=== PATIENT | female | born 1945 | race Caucasian/White ===

== ENCOUNTER 2018-08-22 12:30 | Inpatient (IN) | payer MEDICARE ==
[2018-08-22 12:52] VITALS: BMI 27.4
[2018-09-03] MEDS ORDERED: Lidocaine 1% (PF) 30 ML VIAL ONE (06:30)
[2018-09-03] MEDS ORDERED: Midazolam HCl 2 mg/2 ml Vial ONE (06:30)
[2018-09-03] MEDS ORDERED: Fentanyl 100 MCG/2 ML VIAL ONE ×3 (06:30→09:14)
[2018-09-03] MEDS ORDERED: Sodium Chloride 0.9% 100 ML ONE (06:33)
[2018-09-03] MEDS ORDERED: Tranexamic Acid 1,000 MG/10 ML VIAL ONE (06:33)
[2018-09-03] MEDS ORDERED: CEFAZOLIN 2 GM/50 ML BAG ONE (06:33)
[2018-09-03] MEDS ORDERED: Benzonatate 100 MG CAP PO PRN (06:59)
[2018-09-03] MEDS ORDERED: Fentanyl 100 MCG/2 ML VIAL SLOW IVP PRN (07:00)
[2018-09-03] MEDS ORDERED: Acetaminophen 325 MG TAB PO PRN (07:00)
[2018-09-03] MEDS ORDERED: HYDROcodone/Acetaminophen 10/325 mg Tablet PO PRN ×4 (07:00→07:54)
[2018-09-03] MEDS ORDERED: diphenhydrAMINE 25 MG CAP PO PRN (07:00)
[2018-09-03] MEDS ORDERED: Ondansetron PF 4 MG/2 ML Vial IVP PRN ×2 (07:00→07:54)
[2018-09-03] MEDS ORDERED: Zolpidem Tartrate 5 MG TAB PO PRN ×2 (07:00→07:54)
[2018-09-03] MEDS ORDERED: traMADol HCl 50 MG TAB PO PRN ×2 (07:00→07:54)
[2018-09-03] MEDS ORDERED: CEFAZOLIN/Water 2 GM/20 ML SYRINGE SLOW IVP SCH (07:00)
[2018-09-03] MEDS ORDERED: Promethazine HCl 25 MG/ML VIAL IM PRN ×3 (07:00→08:09)
[2018-09-03] MEDS ORDERED: Ketorolac Tromethamine 30 MG/ML VIAL IVP PRN (07:54)
[2018-09-03] MEDS ORDERED: Ropivacaine 0.2% 550 ML 550 ML NERVE BLCK SCH (07:54)
[2018-09-03] MEDS ORDERED: Fentanyl 100 MCG/2 ML VIAL IV PRN (08:01)
[2018-09-03] MEDS ORDERED: Promethazine HCl 25 MG/ML VIAL SLOW IVP PRN (08:09)
[2018-09-03] MEDS ORDERED: Ondansetron HCl/PF 4 MG/2 ML Vial IVP PRN (08:09)
[2018-09-03] MEDS ORDERED: Ketorolac Tromethamine 30 MG/ML VIAL ONE (08:59)
[2018-09-03] MEDS ORDERED: Aspirin 81 mg Enteric Coated Tablet PO SCH (09:00)
--- NOTE | 2018-09-03 10:03 | OP ---
PREOPERATIVE DIAGNOSIS: Degenerative joint disease, right knee. POSTOPERATIVE DIAGNOSIS: Degenerative joint disease, right knee. PROCEDURE PERFORMED: Right total knee arthroplasty. SURGEON: Doe Saul M.D. PRODUCE INSPECTOR: Merritt Lares PA-C. BLOOD LOSS: Minimal. SPECIMEN: None. DRAINS: None. COMPLICATIONS: None. TOURNIQUET TIME: 46 minutes. IMPLANTS USED: Jud Triathlon 4 femur, 3 tibia, 9 mm CSX3 polyethylene, A29 patella. PROCEDURE IN DETAIL: After informed consent was obtained in the preoperative holding area. The emilee ent was taken to the operative suite where general anesthesia was induced. Once adequate level of ge neral anesthesia was obtained, the patient was positioned and a well-padded tourniquet was placed jeff und the right proximal thigh. The right lower extremity was then prepped and draped in the usual tianna rile fashion. Prior to exsanguination, a time out was called and all members of the surgical team ag tomeka upon site, surgeon, and patient. The extremity was then exsanguinated and the tourniquet was ra ised. A midline longitudinal incision was then made directly over the patella extending two fingerbr eadths above the superior pole of the patella and two fingerbreadths inferior to the inferior patella r pole of the patella. Deeper subcutaneous layers were dissected sharply and local bleeding was cont rolled with Bovie electrocautery. A quad tendon longitudinal split was then made sharply and a media n parapatellar arthrotomy was carried out both sharp and with Bovie electrocautery, carried down to o ne fingerbreadth medial to the tibial tubercle. The knee was then placed into flexion and the patell a was everted nicely, and a copious fat pad ectomy was performed allowing for greater exposure of the tibia. The computer-assisted distal femoral fiducial was then placed and pinned firmly, and the dis rachana femoral cutting guide was pinned firmly into place. The oscillating saw was then used to remove the appropriate amount of bone. The 4-in-1 cutting block was then placed on the distal femur and the oscillating saw was used to remove the appropriate amount of bone off of the anterior, posterior, an d chamfer cuts. After completion of bone cuts, the anterior cruciate ligament was resected sharply a nd the posterior cruciate ligament retractor was placed and the tibia was subluxed for better exposur e. Partial meniscectomies were carried out, and the tibial computer-assisted fiducial was pinned, an d the cutting guide was placed. Oscillating saw was then used to remove the bone with Hohmann retrac tors used to take care and protect the collateral ligaments. After the tibial resection was performe d, a laminar occupational therapy instructor was placed in between the freshened bone cuts. The knee placed at 90 degrees a nd further bilateral meniscectomies were carried out, and the curved osteotome and curettage was used to remove any excess bone spurs in the posterior compartment. The trial femoral component, tibial b aseplate were placed with the appropriate polyethylene trial insert with an appropriate polyethylene spacer and patellar button. The knee was taken through full range of motion with flexion and extensi on from 0-90 degrees and patellar broach squarely in the trochlea without any squinting or subluxatio n noted. The knee was also stable to varus and valgus stressing at 0, 15, 45, and 90 degrees of flex ion. The drawer was negative. All trial components were then removed and the keel punch was used to provide the appropriate defect in the tibia with a mallet. The freshened bone cuts were copiously i rrigated with pulsatile lavage of about 1-1/2 liters to remove all excess debris. The freshened bone cuts were then dried and with suction and lap sponge. The knee was placed in flexion and retractors were placed to provide access to all bone cuts. Tobramycin impregnated methyl methacrylate cement w as then placed on the freshened bone cuts and implants which were malleted firmly into place. Curett age and [place] elevators were used to remove any excess bone cement. The knee was placed into full ex tension and the patellar button was placed under compression, and the cement was allowed to cure. On ce completed, the components were again taken through full range of motion and copious irrigation of the knee was carried out with another liter of normal saline. All components were inspected fully wi th full range of motion and varus and valgus stressing. There was no laxity noted and full extension was observed clinically. Primary closure was accomplished with #2 interrupted Vicryl stitch of the arthrotomy defect. This was oversewn with a #2 running Quill barbed stitch. The gravitational plate let system was then injected into the arthrotomy prior to closure. The subcutaneous layer was then c losed with a running 0 barbed Monocryl stitch and skin closure accomplished with a running subcuticul ar 3-0 Monocryl barbed Quill stitch and augmented with cement on the skin. Tourniquet was lowered. Good spontaneous return of distal pulses was noted clinically and a sterile dressing was applied to t he incision. The procedure was terminated without any complications. The patient was awakened in th e operative suite and the tourniquet was removed, and the patient was taken to the recovery room in s table condition.
[2018-09-03] MEDS ORDERED: Cepastat Lozenges 1 LOZ PO PRN (10:24)
[2018-09-03] MEDS ORDERED: Diabetic Tussin 200 MG/10 ML UDCUP PO PRN (10:24)
[2018-09-03] MEDS ORDERED: Loperamide HCl 2 MG CAP PO PRN (10:24)
[2018-09-03] MEDS ORDERED: hydrALAZINE 20 MG/ML VIAL SLOW IVP PRN (10:24)
[2018-09-03] MEDS ORDERED: Artificial Tears 18 DROP/0.9 ML EA EYE PRN (10:24)
[2018-09-03] MEDS ORDERED: Eucerin (Mineral Oil/Petrolatum,White) 30 gm Jar TOP PRN (10:24)
[2018-09-03] MEDS ORDERED: Sodium Chloride 0.65% Nasal 44 ML BOT EA NARE PRN (10:24)
--- NOTE | 2018-09-03 10:27 | PDOC.PN ---
- Subjective Encounter Start Date: 09/03/18 Encounter Start Time: 10:26 -: old records requested/rev Patient seen and examined. No new complaints. No overnight events - Objective Resuscitation Status: Resuscitation Status FULL:Full Resuscitation MAR Reviewed: Yes Vital Signs & Weight: Weight Weight 165 lb Additional Labs: old labs and preoperative record reviewed Radiology Reviewed by me: Yes (knee xray) Phys Exam - Physical Examination Constitutional: NAD HEENT: PERRLA, moist MMs, sclera anicteric Neck: no JVD, supple Respiratory: no wheezing, no rales, no rhonchi Cardiovascular: RRR, no significant murmur, no rub Gastrointestinal: soft, non-tender, no distention, positive bowel sounds Musculoskeletal: no edema, pulses present Neurological: non-focal, normal sensation, moves all 4 limbs Lymphatic: no nodes Psychiatric: normal affect, A&O x 3 Skin: no rash, normal turgor Dx/Plan (1) Status post total right knee replacement Code(s): Z96.651 - PRESENCE OF RIGHT ARTIFICIAL KNEE JOINT Status: Acute (2) Dyslipidemia Code(s): E78.5 - HYPERLIPIDEMIA, UNSPECIFIED Status: Chronic (3) H/O: CVA (cerebrovascular accident) Code(s): Z86.73 - PRSNL HX OF TIA (TIA), AND CEREB INFRC W/O RESID DEFICITS Status: Chronic (4) H/O benign neoplasm of heart Code(s): Z86.79 - PERSONAL HISTORY OF OTHER DISEASES OF THE CIRCULATORY SYSTEM Status: Chronic (5) Rheumatoid arthritis Code(s): M06.9 - RHEUMATOID ARTHRITIS, UNSPECIFIED Status: Chronic - Plan cont current plan of care, plan discussed w/ family, PT/OT * continue aspirin for DVT prophylaxis * nerve block as per anesthesia * PT/OT as per [facility] protocol * medication reviewed as below * symptomatic treatment * home medication reconciled. * code status full code Review of Systems - Review of Systems Eyes: negative: Pain, Vision Change, Conjunctivae Inflammation, Eyelid Inflammation, Redness, Other ENT: negative: Ear Pain, Ear Discharge, Nose Pain, Nose Discharge, Nose Congestion, Mouth Pain, Mouth Swelling, Throat Pain, Throat Swelling, Other Respiratory: negative: Cough, Dry, Shortness of Breath, Hemoptysis, SOB with Excertion, Pleuritic Pain, Sputum, Wheezing Cardiovascular: negative: chest pain, palpitations, orthopnea, paroxysmal nocturnal dyspnea, edema, light headedness, other Gastrointestinal: negative: Nausea, Vomiting, Abdominal Pain, Diarrhea, Constipation, Melena, Hematochezia, Other Genitourinary: negative: Dysuria, Frequency, Incontinence, Hematuria, Retention , Other Musculoskeletal: negative: Neck Pain, Shoulder Pain, Arm Pain, Back Pain, Hand Pain, Leg Pain, Foot Pain, Other Skin: negative: Rash, Lesions, Chicho, Bruising, Other - Medications/Allergies Allergies/Adverse Reactions: Allergies Allergy/AdvReac Type Severity Reaction Status Date / Time No Known Allergies Allergy Verified 08/22/18 12:52 Medications: Current Medications Acetaminophen (Tylenol) 650 mg PO Q4H PRN PRN Reason: AMEZQUITA/ T > 101F; Mild Pain (1-3) Hydrocodone Bitart/Acetaminophen ([place] 10/325) 1 tab PO Q4H PRN PRN Reason: Pain (1-3) Hydrocodone Bitart/Acetaminophen ([place] 10/325) 2 tab PO Q4H PRN PRN Reason: PAIN (4-6) Artificial Tears (Tears Naturale) 2 drop EA EYE PRN PRN PRN Reason: Dry Eyes Aspirin (Ecotrin) 81 mg PO BID [facility] Benzonatate (Tessalon) 100 mg PO QIDPRN PRN PRN Reason: Cough Calcium Carbonate (Caltrate) 600 mg PO QAM [facility] Celecoxib (Celebrex) 200 mg PO QAM [facility] Cholecalciferol (Vitamin D3) 1,000 units PO SuTuThSa [facility] Diphenhydramine HCl (Benadryl) 25 mg PO Q6H PRN PRN Reason: Itching Fentanyl (Sublimaze) 50 mcg IV Q1H PRN PRN Reason: BT PAIN Fentanyl (Pacu-Sublimaze) 50 mcg SLOW IVP Q10MIN PRN PRN Reason: Moderate to Severe Pain (6-10) Stop: 09/03/18 11:09 Ferrous Gluconate (Fergon) 324 mg PO BID [facility] Folic Acid (Folvite) 1 mg PO DAILY [facility] Guaifenesin (Robitussin Sf) 200 mg PO Q4H PRN PRN Reason: Cough Hydralazine HCl (Apresoline) 10 mg SLOW IVP Q4H PRN PRN Reason: SBP Greater Than 170 Sodium Chloride (Normal Saline 0.9%) 1,000 mls @ 100 mls/hr IV .Q10H [facility] Cefazolin Sodium/Dextrose 2 gm (/ Device) 50 mls @ 100 mls/hr IVPB 1500,2300 ANUPAM Stop: 09/03/18 23:29 Ropivacaine (Ropivacaine 0.2% 550 Ml) 550 mls @ 0 mls/hr NERVE BLCK INF [facility] Iron/Minerals/Multivitamins (Theragran M) 1 tab PO DAILY [facility] Ketorolac Tromethamine (Toradol) 15 mg IVP Q6H PRN PRN Reason: Moderate Pain (4-6) Stop: 09/06/18 07:55 Loperamide HCl (Imodium) 2 mg PO PRN PRN PRN Reason: Diarrhea/Loose Stools Methotrexate Sodium (Methotrexate Sodium) 10 mg PO WeSa [facility] Mineral Oil/White Petrolatum (Eucerin Cream) 0 gm TOP BIDPRN PRN PRN Reason: Dry Skin Ondansetron HCl (Zofran) 4 mg IVP Q6H PRN PRN Reason: Nausea/Vomiting Ondansetron HCl (Pacu-Zofran) 4 mg IVP ONE PRN PRN Reason: Nausea/Vomiting Stop: 09/03/18 11:09 Promethazine HCl (Phenergan) 12.5 mg IM Q4H PRN PRN Reason: Nausea Promethazine HCl (Pacu-Phenergan) 6.25 mg SLOW IVP ONE PRN PRN Reason: Nausea/Vomiting Stop: 09/03/18 11:09 Promethazine HCl (Pacu-Phenergan) 6.25 mg IM ONE PRN PRN Reason: Nausea/Vomiting Stop: 09/03/18 11:09 Rosuvastatin Calcium (Crestor) 5 mg PO SuTuThSa [facility] Senna/Docusate Sodium (Senokot S) 2 tab PO BID [facility] Sodium Chloride (Flush - Normal Saline) 10 ml IVF PRN PRN PRN Reason: Saline Flush Sodium Chloride ([place] Nasal [place] 0.65%) 0 ml EA NARE QIDPRN PRN PRN Reason: Nasal Congestion Sotalol HCl (Betapace) 40 mg PO BID [facility] Throat Lozenges (Cepastat Lozenges) 1 tera PO Q2H PRN PRN Reason: Sore Throat Tramadol HCl (Ultram) 50 mg PO Q6H PRN PRN Reason: Mild Pain (1-3) Tramadol HCl (Ultram) 100 mg PO Q6H PRN PRN Reason: Moderate Pain 4-6 Zolpidem Tartrate (Ambien) 5 mg PO HSPRN PRN PRN Reason: Insomnia
--- NOTE | 2018-09-03 10:44 | RAD ---
PORTABLE RIGHT KNEE TWO VIEWS: History: Post op total knee replacement. FINDINGS/IMPRESSION: There are recent post op changes of total knee arthroplasty in good position and alignment. Soft tiss ue air is present. POS: [facility]
[2018-09-03] MEDS ORDERED: Ketorolac Tromethamine 30 MG/ML VIAL IM SCH (14:00)
[2018-09-03] MEDS ORDERED: Bupivacaine 0.25% HCL 30 ML VIAL ONE (14:12)
[2018-09-03] MEDS ORDERED: Ropivacaine 0.5% HCl/PF (150 MG/30 ML VIAL) ONE (14:12)
[2018-09-03] MEDS ORDERED: Lidocaine 1% PF 5 ML VIAL ONE (14:36)
[2018-09-03] MEDS ORDERED: PROPOFOL 200 MG/20 ML VIAL ONE (14:36)
[2018-09-03] MEDS ORDERED: Ondansetron PF 4 MG/2 ML Vial ONE (14:36)
[2018-09-03] MEDS: Sodium Chloride 0.9% 1,000 ML IV SCH ×2 (15:10→16:02)
[2018-09-03] MEDS: Sotalol HCl 80 MG TAB PO SCH ×2 (15:11→19:11)
[2018-09-03] MEDS: CeleCOXIB 100 MG CAP PO SCH (15:11)
[2018-09-03] MEDS: Calcium Carbonate 600 MG TAB PO SCH (15:11)
[2018-09-03] MEDS: Folic Acid 1 MG TAB PO SCH (15:11)
[2018-09-03] MEDS: Aspirin 81 mg Enteric Coated Tablet PO SCH ×2 (15:11→19:12)
[2018-09-03] MEDS: CEFAZOLIN 2 GM/50 ML-DEXTROSE 2 GM in Premix Bag 1 BAG IVPB SCH ×2 (15:16→22:21)
[2018-09-04] MEDS: Sodium Chloride 0.9% 1,000 ML IV SCH ×3 (02:28→22:48)
[2018-09-04 05:49] LABS: Hemoglobin 10.6 g/dL (12.0-16.0); Mean Corpuscular HGB CONC 32.9 g/dL (32.0-36.0); Mean Corpuscular Hemoglobin 33.6 pg (27.0-31.0); Mean Platelet Volume 7.6 fL (7.4-10.4); Platelet Count 201 thou/uL (130-400); RBC Distribution Width 13.3 % (11.5-14.5); Red Blood Cell (RBC) Count 3.16 mill/uL (4.20-5.40); White Blood Cell (WBC) Count 7.5 thou/uL (4.8-10.8)
[2018-09-04] MEDS: Multivitamin W/ Minerals 1 TAB PO SCH (07:54)
[2018-09-04] MEDS: CeleCOXIB 100 MG CAP PO SCH (07:55)
[2018-09-04] MEDS: Folic Acid 1 MG TAB PO SCH (07:55)
[2018-09-04] MEDS: Ferrous Gluconate 324 MG TAB PO SCH ×2 (07:55→19:41)
[2018-09-04] MEDS: Aspirin 81 mg Enteric Coated Tablet PO SCH ×2 (07:55→19:41)
[2018-09-04] MEDS: Senokot S 8.6-50 MG TAB PO SCH ×2 (07:56→19:41)
[2018-09-04] MEDS: Sotalol HCl 80 MG TAB PO SCH ×2 (07:56→19:37)
[2018-09-04] MEDS: Calcium Carbonate 600 MG TAB PO SCH (07:56)
[2018-09-04] MEDS: traMADol HCl 50 MG TAB PO PRN (07:57)
--- NOTE | 2018-09-04 10:49 | PDOC.PN ---
- Subjective Encounter Start Date: 09/04/18 Encounter Start Time: 08:00 Patient seen and examined. No new complaints. No overnight events - Objective Resuscitation Status: Resuscitation Status FULL:Full Resuscitation MAR Reviewed: Yes Vital Signs & Weight: Vital Signs (12 hours) Temp Pulse Resp BP BP BP BP 09/04/18 09:10 89/60 L 86/49 L 09/04/18 07:56 81 102/66 09/04/18 07:30 98.5 F 81 18 102/66 09/04/18 03:49 99.4 F 89 18 09/03/18 23:46 101.0 F H 94 18 BP Pulse Ox Pulse Ox Pulse Ox 09/04/18 09:10 89 L 90 L 09/04/18 07:56 09/04/18 07:30 94 L 09/04/18 03:49 90/55 L 94 L 09/03/18 23:46 94/60 95 Weight Weight 165 lb I&O: 09/03/18 09/04/18 09/05/18 06:59 06:59 06:59 Intake Total 1100 Output Total 1300 600 Balance -200 -600 Result Diagrams: 09/04/18 04:50 Phys Exam - Physical Examination Constitutional: NAD HEENT: PERRLA, moist MMs, sclera anicteric Neck: no JVD, supple Respiratory: no wheezing, no rales, no rhonchi Cardiovascular: RRR, no significant murmur, no rub Gastrointestinal: soft, non-tender, no distention, positive bowel sounds Musculoskeletal: no edema, pulses present left knee with dressing, nerve block in place Neurological: non-focal, normal sensation Lymphatic: no nodes Psychiatric: normal affect, A&O x 3 Skin: no rash, normal turgor Dx/Plan (1) Status post total right knee replacement Code(s): Z96.651 - PRESENCE OF RIGHT ARTIFICIAL KNEE JOINT Status: Acute (2) Dyslipidemia Code(s): E78.5 - HYPERLIPIDEMIA, UNSPECIFIED Status: Chronic (3) H/O: CVA (cerebrovascular accident) Code(s): Z86.73 - PRSNL HX OF TIA (TIA), AND CEREB INFRC W/O RESID DEFICITS Status: Chronic (4) H/O benign neoplasm of heart Code(s): Z86.79 - PERSONAL HISTORY OF OTHER DISEASES OF THE CIRCULATORY SYSTEM Status: Chronic (5) Rheumatoid arthritis Code(s): M06.9 - RHEUMATOID ARTHRITIS, UNSPECIFIED Status: Chronic (6) Macrocytic anemia Code(s): D53.9 - NUTRITIONAL ANEMIA, UNSPECIFIED Status: Chronic - Plan cont current plan of care, plan discussed w/ family, PT/OT * continue aspirin for DVT prophylaxis * nerve block as per anesthesia * PT/OT as per [facility] protocol * medication reviewed as below * symptomatic treatment. * she will need rehab/ snu placement on discharge Review of Systems - Review of Systems ENT: negative: Ear Pain, Ear Discharge, Nose Pain, Nose Discharge, Nose Congestion, Mouth Pain, Mouth Swelling, Throat Pain, Throat Swelling, Other Respiratory: negative: Cough, Dry, Shortness of Breath, Hemoptysis, SOB with Excertion, Pleuritic Pain, Sputum, Wheezing Cardiovascular: negative: chest pain, palpitations, orthopnea, paroxysmal nocturnal dyspnea, edema, light headedness, other Gastrointestinal: negative: Nausea, Vomiting, Abdominal Pain, Diarrhea, Constipation, Melena, Hematochezia, Other Genitourinary: negative: Dysuria, Frequency, Incontinence, Hematuria, Retention , Other Musculoskeletal: negative: Neck Pain, Shoulder Pain, Arm Pain, Back Pain, Hand Pain, Leg Pain, Foot Pain, Other Skin: negative: Rash, Lesions, Chicho, Bruising, Other - Medications/Allergies Allergies/Adverse Reactions: Allergies Allergy/AdvReac Type Severity Reaction Status Date / Time No Known Allergies Allergy Verified 08/22/18 12:52 Medications: Current Medications Acetaminophen (Tylenol) 650 mg PO Q4H PRN PRN Reason: AMEZQUITA/ T > 101F; Mild Pain (1-3) Last Admin: 09/04/18 05:50 Dose: 650 mg Hydrocodone Bitart/Acetaminophen ([place] 10/325) 1 tab PO Q4H PRN PRN Reason: Pain (1-3) Hydrocodone Bitart/Acetaminophen ([place] 10/325) 2 tab PO Q4H PRN PRN Reason: PAIN (4-6) Last Admin: 09/03/18 19:12 Dose: 2 tab Artificial Tears (Tears Naturale) 2 drop EA EYE PRN PRN PRN Reason: Dry Eyes Aspirin (Ecotrin) 81 mg PO BID ANUPAM Last Admin: 09/04/18 07:55 Dose: 81 mg Benzonatate (Tessalon) 100 mg PO QIDPRN PRN PRN Reason: Cough Calcium Carbonate (Caltrate) 600 mg PO QAM [facility] Last Admin: 09/04/18 07:56 Dose: 600 mg Celecoxib (Celebrex) 200 mg PO QAM [facility] Last Admin: 09/04/18 07:55 Dose: 200 mg Cholecalciferol (Vitamin D3) 1,000 units PO [facility] Diphenhydramine HCl (Benadryl) 25 mg PO Q6H PRN PRN Reason: Itching Fentanyl (Sublimaze) 50 mcg IV Q1H PRN PRN Reason: BT PAIN Last Admin: 09/03/18 10:35 Dose: 50 mcg Ferrous Gluconate (Fergon) 324 mg PO BID [facility] Last Admin: 09/04/18 07:55 Dose: 324 mg Folic Acid (Folvite) 1 mg PO DAILY [facility] Last Admin: 09/04/18 07:55 Dose: 1 mg Guaifenesin (Robitussin Sf) 200 mg PO Q4H PRN PRN Reason: Cough Hydralazine HCl (Apresoline) 10 mg SLOW IVP Q4H PRN PRN Reason: SBP Greater Than 170 Sodium Chloride (Normal Saline 0.9%) 1,000 mls @ 100 mls/hr IV .Q10H [facility] Last Admin: 09/04/18 02:28 Dose: Not Given Ropivacaine (Ropivacaine 0.2% 550 Ml) 550 mls @ 0 mls/hr NERVE BLCK INF [facility] Iron/Minerals/Multivitamins (Theragran M) 1 tab PO DAILY [facility] Last Admin: 09/04/18 07:54 Dose: 1 tab Ketorolac Tromethamine (Toradol) 15 mg IVP Q6H PRN PRN Reason: Moderate Pain (4-6) Stop: 09/06/18 07:55 Loperamide HCl (Imodium) 2 mg PO PRN PRN PRN Reason: Diarrhea/Loose Stools Methotrexate Sodium (Methotrexate Sodium) 10 mg PO WeSa [facility] Mineral Oil/White Petrolatum (Eucerin Cream) 0 gm TOP BIDPRN PRN PRN Reason: Dry Skin Ondansetron HCl (Zofran) 4 mg IVP Q6H PRN PRN Reason: Nausea/Vomiting Last Admin: 09/04/18 08:45 Dose: 4 mg Promethazine HCl (Phenergan) 12.5 mg IM Q4H PRN PRN Reason: Nausea Rosuvastatin Calcium (Crestor) 5 mg PO SuTuThSa [facility] Senna/Docusate Sodium (Senokot S) 2 tab PO BID [facility] Last Admin: 09/04/18 07:56 Dose: 2 tab Sodium Chloride (Flush - Normal Saline) 10 ml IVF PRN PRN PRN Reason: Saline Flush Last Admin: 09/04/18 07:53 Dose: 10 ml Sodium Chloride ([place] Nasal [place] 0.65%) 0 ml EA NARE QIDPRN PRN PRN Reason: Nasal Congestion Sotalol HCl (Betapace) 40 mg PO BID [facility] Last Admin: 09/04/18 07:56 Dose: 40 mg Throat Lozenges (Cepastat Lozenges) 1 tera PO Q2H PRN PRN Reason: Sore Throat Tramadol HCl (Ultram) 50 mg PO Q6H PRN PRN Reason: Mild Pain (1-3) Last Admin: 09/04/18 07:57 Dose: 50 mg Tramadol HCl (Ultram) 100 mg PO Q6H PRN PRN Reason: Moderate Pain 4-6 Zolpidem Tartrate (Ambien) 5 mg PO HSPRN PRN PRN Reason: Insomnia
[2018-09-04] MEDS: Methotrexate Sodium 2.5 MG TAB PO SCH (18:23)
[2018-09-05 05:42] LABS: Hemoglobin 10.2 g/dL (12.0-16.0); Mean Corpuscular HGB CONC 32.6 g/dL (32.0-36.0); Mean Platelet Volume 7.5 fL (7.4-10.4); Platelet Count 188 thou/uL (130-400); RBC Distribution Width 13.4 % (11.5-14.5); White Blood Cell (WBC) Count 9.7 thou/uL (4.8-10.8)
[2018-09-05] MEDS: Sodium Chloride 0.9% 1,000 ML IV SCH (07:20)
[2018-09-05] MEDS: Calcium Carbonate 600 MG TAB PO SCH (09:17)
[2018-09-05] MEDS: CeleCOXIB 100 MG CAP PO SCH (09:17)
[2018-09-05] MEDS: Senokot S 8.6-50 MG TAB PO SCH ×2 (09:17→20:36)
[2018-09-05] MEDS: Aspirin 81 mg Enteric Coated Tablet PO SCH ×2 (09:18→20:35)
[2018-09-05] MEDS: Multivitamin W/ Minerals 1 TAB PO SCH (09:18)
[2018-09-05] MEDS: Folic Acid 1 MG TAB PO SCH (09:18)
[2018-09-05] MEDS: Ferrous Gluconate 324 MG TAB PO SCH ×2 (09:18→20:35)
[2018-09-05] MEDS: Sotalol HCl 80 MG TAB PO SCH ×2 (09:18→20:36)
[2018-09-05] MEDS: traMADol HCl 50 MG TAB PO PRN ×2 (09:19→14:48)
--- NOTE | 2018-09-05 09:40 | PDOC.PN ---
- Subjective Encounter Start Date: 09/05/18 Encounter Start Time: 08:10 Patient seen and examined. No new complaints. No overnight events - Objective Resuscitation Status: Resuscitation Status FULL:Full Resuscitation MAR Reviewed: Yes Vital Signs & Weight: Vital Signs (12 hours) Temp Pulse Resp BP BP Pulse Ox 09/05/18 09:18 80 112/68 09/05/18 07:32 98.7 F 80 14 112/68 95 09/05/18 04:35 98.4 F 80 16 165/80 H 95 09/04/18 23:59 99.4 F 98 18 129/62 93 L Weight Admit Weight 165 lb Weight 165 lb I&O: 09/04/18 09/05/18 09/06/18 06:59 06:59 06:59 Intake Total 1100 1593 Output Total 1300 2800 Balance -200 -1207 Result Diagrams: 09/05/18 04:53 Phys Exam - Physical Examination Constitutional: NAD HEENT: PERRLA, moist MMs, sclera anicteric Neck: no JVD, supple Respiratory: no wheezing, no rales, no rhonchi Cardiovascular: RRR, no significant murmur, no rub Gastrointestinal: soft, non-tender, no distention, positive bowel sounds Musculoskeletal: no edema, pulses present Neurological: non-focal, normal sensation Lymphatic: no nodes Psychiatric: normal affect, A&O x 3 Skin: no rash, normal turgor Dx/Plan (1) Status post total right knee replacement Code(s): Z96.651 - PRESENCE OF RIGHT ARTIFICIAL KNEE JOINT Status: Acute (2) Dyslipidemia Code(s): E78.5 - HYPERLIPIDEMIA, UNSPECIFIED Status: Chronic (3) H/O: CVA (cerebrovascular accident) Code(s): Z86.73 - PRSNL HX OF TIA (TIA), AND CEREB INFRC W/O RESID DEFICITS Status: Chronic (4) H/O benign neoplasm of heart Code(s): Z86.79 - PERSONAL HISTORY OF OTHER DISEASES OF THE CIRCULATORY SYSTEM Status: Chronic (5) Rheumatoid arthritis Code(s): M06.9 - RHEUMATOID ARTHRITIS, UNSPECIFIED Status: Chronic (6) Macrocytic anemia Code(s): D53.9 - NUTRITIONAL ANEMIA, UNSPECIFIED Status: Chronic - Plan cont current plan of care, PT/OT, social media intern * medication reviewed as below * symptomatic treatment * medically stable with current treatment * pain controlled * will need rehab. Review of Systems - Review of Systems ENT: negative: Ear Pain, Ear Discharge, Nose Pain, Nose Discharge, Nose Congestion, Mouth Pain, Mouth Swelling, Throat Pain, Throat Swelling, Other Respiratory: negative: Cough, Dry, Shortness of Breath, Hemoptysis, SOB with Excertion, Pleuritic Pain, Sputum, Wheezing Cardiovascular: negative: chest pain, palpitations, orthopnea, paroxysmal nocturnal dyspnea, edema, light headedness, other Gastrointestinal: negative: Nausea, Vomiting, Abdominal Pain, Diarrhea, Constipation, Melena, Hematochezia, Other Genitourinary: negative: Dysuria, Frequency, Incontinence, Hematuria, Retention , Other Musculoskeletal: negative: Neck Pain, Shoulder Pain, Arm Pain, Back Pain, Hand Pain, Leg Pain, Foot Pain, Other Skin: negative: Rash, Lesions, Chicho, Bruising, Other - Medications/Allergies Allergies/Adverse Reactions: Allergies Allergy/AdvReac Type Severity Reaction Status Date / Time No Known Allergies Allergy Verified 08/22/18 12:52 Medications: Current Medications Acetaminophen (Tylenol) 650 mg PO Q4H PRN PRN Reason: AMEZQUITA/ T > 101F; Mild Pain (1-3) Last Admin: 09/04/18 05:50 Dose: 650 mg Hydrocodone Bitart/Acetaminophen ([place] 10/325) 1 tab PO Q4H PRN PRN Reason: Pain (1-3) Hydrocodone Bitart/Acetaminophen ([place] 10/325) 2 tab PO Q4H PRN PRN Reason: PAIN (4-6) Last Admin: 09/03/18 19:12 Dose: 2 tab Artificial Tears (Tears Naturale) 2 drop EA EYE PRN PRN PRN Reason: Dry Eyes Aspirin (Ecotrin) 81 mg PO BID [facility] Last Admin: 09/05/18 09:18 Dose: 81 mg Benzonatate (Tessalon) 100 mg PO QIDPRN PRN PRN Reason: Cough Calcium Carbonate (Caltrate) 600 mg PO [facility] Last Admin: 09/05/18 09:17 Dose: 600 mg Celecoxib (Celebrex) 200 mg PO [facility] Last Admin: 09/05/18 09:17 Dose: Not Given Cholecalciferol (Vitamin D3) 1,[facility] Last Admin: 09/05/18 09:18 Dose: 1,000 units Diphenhydramine HCl (Benadryl) 25 mg PO Q6H PRN PRN Reason: Itching Fentanyl (Sublimaze) 50 mcg IV Q1H PRN PRN Reason: BT PAIN Last Admin: 09/03/18 10:35 Dose: 50 mcg Ferrous Gluconate (Fergon) 324 mg PO BID [facility] Last Admin: 09/05/18 09:18 Dose: 324 mg Folic Acid (Folvite) 1 mg PO DAILY [facility] Last Admin: 09/05/18 09:18 Dose: 1 mg Guaifenesin (Robitussin Sf) 200 mg PO Q4H PRN PRN Reason: Cough Hydralazine HCl (Apresoline) 10 mg SLOW IVP Q4H PRN PRN Reason: SBP Greater Than 170 Sodium Chloride (Normal Saline 0.9%) 1,000 mls @ 100 mls/hr IV .Q10H [facility] Last Admin: 09/05/18 07:20 Dose: Not Given Ropivacaine (Ropivacaine 0.2% 550 Ml) 550 mls @ 0 mls/hr NERVE BLCK INF [facility] Iron/Minerals/Multivitamins (Theragran M) 1 tab PO DAILY [facility] Last Admin: 09/05/18 09:18 Dose: 1 tab Ketorolac Tromethamine (Toradol) 15 mg IVP Q6H PRN PRN Reason: Moderate Pain (4-6) Stop: 09/06/18 07:55 Loperamide HCl (Imodium) 2 mg PO PRN PRN PRN Reason: Diarrhea/Loose Stools Methotrexate Sodium (Methotrexate Sodium) 10 mg PO [facility] Last Admin: 09/04/18 18:23 Dose: Not Given Mineral Oil/White Petrolatum (Eucerin Cream) 0 gm TOP BIDPRN PRN PRN Reason: Dry Skin Ondansetron HCl (Zofran) 4 mg IVP Q6H PRN PRN Reason: Nausea/Vomiting Last Admin: 09/04/18 08:45 Dose: 4 mg Promethazine HCl (Phenergan) 12.5 mg IM Q4H PRN PRN Reason: Nausea Rosuvastatin Calcium (Crestor) 5 mg PO [facility] Senna/Docusate Sodium (Senokot S) 2 tab PO BID [facility] Last Admin: 09/05/18 09:17 Dose: 2 tab Sodium Chloride (Flush - Normal Saline) 10 ml IVF PRN PRN PRN Reason: Saline Flush Last Admin: 09/04/18 07:53 Dose: 10 ml Sodium Chloride ([place] Nasal [place] 0.65%) 0 ml EA NARE QIDPRN PRN PRN Reason: Nasal Congestion Sotalol HCl (Betapace) 40 mg PO BID [facility] Last Admin: 09/05/18 09:18 Dose: 40 mg Throat Lozenges (Cepastat Lozenges) 1 tera PO Q2H PRN PRN Reason: Sore Throat Tramadol HCl (Ultram) 50 mg PO Q6H PRN PRN Reason: Mild Pain (1-3) Last Admin: 09/05/18 09:19 Dose: 25 mg Tramadol HCl (Ultram) 100 mg PO Q6H PRN PRN Reason: Moderate Pain 4-6 Zolpidem Tartrate (Ambien) 5 mg PO HSPRN PRN PRN Reason: Insomnia
[2018-09-05] MEDS ORDERED: Ondansetron ODT 4 MG TAB SL PRN (14:22)
[2018-09-05] MEDS ORDERED: Rosuvastatin 5 MG TAB PO SCH (21:00)
[2018-09-06] MEDS: Sodium Chloride 0.9% 1,000 ML IV SCH ×2 (05:00→16:53)
[2018-09-06 05:49] LABS: Hemoglobin 9.9 g/dL (12.0-16.0); Mean Corpuscular HGB CONC 33.4 g/dL (32.0-36.0); Mean Corpuscular Hemoglobin 33.6 pg (27.0-31.0); Mean Platelet Volume 7.4 fL (7.4-10.4); Platelet Count 226 thou/uL (130-400); RBC Distribution Width 13.1 % (11.5-14.5); Red Blood Cell (RBC) Count 2.95 mill/uL (4.20-5.40)
[2018-09-06] MEDS: Sotalol HCl 80 MG TAB PO SCH ×2 (08:03→21:22)
[2018-09-06] MEDS: CeleCOXIB 100 MG CAP PO SCH (08:04)
[2018-09-06] MEDS: Aspirin 81 mg Enteric Coated Tablet PO SCH ×2 (08:05→21:23)
[2018-09-06] MEDS: Calcium Carbonate 600 MG TAB PO SCH (08:05)
[2018-09-06] MEDS: Ferrous Gluconate 324 MG TAB PO SCH ×2 (08:05→21:23)
[2018-09-06] MEDS: Folic Acid 1 MG TAB PO SCH (08:06)
[2018-09-06] MEDS: Multivitamin W/ Minerals 1 TAB PO SCH (08:06)
[2018-09-06] MEDS: Senokot S 8.6-50 MG TAB PO SCH ×2 (08:06→21:24)
--- NOTE | 2018-09-06 09:19 | PDOC.PN ---
- Subjective Encounter Start Date: 09/06/18 Encounter Start Time: 08:20 Patient seen and examined. No new complaints. No overnight events - Objective Resuscitation Status: Resuscitation Status FULL:Full Resuscitation MAR Reviewed: Yes Vital Signs & Weight: Vital Signs (12 hours) Temp Pulse Resp BP BP BP Pulse Ox 09/06/18 08:03 81 139/75 09/06/18 07:32 98.6 F 76 16 119/75 92 L 09/06/18 04:00 98.9 F 81 18 103/66 96 09/06/18 00:00 97.9 F 77 18 125/69 95 Weight Admit Weight 165 lb Weight 165 lb I&O: 09/05/18 09/06/18 09/07/18 06:59 06:59 06:59 Intake Total 1593 1250 Output Total 2800 Balance -1207 1250 Result Diagrams: 09/06/18 04:51 Phys Exam - Physical Examination Constitutional: NAD HEENT: PERRLA, moist MMs, sclera anicteric Neck: no JVD, supple Respiratory: no wheezing, no rales, no rhonchi Cardiovascular: RRR, no significant murmur, no rub Gastrointestinal: soft, non-tender, no distention, positive bowel sounds Musculoskeletal: no edema, pulses present Neurological: non-focal, normal sensation Lymphatic: no nodes Psychiatric: normal affect, A&O x 3 Skin: no rash, normal turgor Dx/Plan (1) Status post total right knee replacement Code(s): Z96.651 - PRESENCE OF RIGHT ARTIFICIAL KNEE JOINT Status: Acute (2) Dyslipidemia Code(s): E78.5 - HYPERLIPIDEMIA, UNSPECIFIED Status: Chronic (3) H/O: CVA (cerebrovascular accident) Code(s): Z86.73 - PRSNL HX OF TIA (TIA), AND CEREB INFRC W/O RESID DEFICITS Status: Chronic (4) H/O benign neoplasm of heart Code(s): Z86.79 - PERSONAL HISTORY OF OTHER DISEASES OF THE CIRCULATORY SYSTEM Status: Chronic (5) Rheumatoid arthritis Code(s): M06.9 - RHEUMATOID ARTHRITIS, UNSPECIFIED Status: Chronic (6) Macrocytic anemia Code(s): D53.9 - NUTRITIONAL ANEMIA, UNSPECIFIED Status: Chronic - Plan cont current plan of care, plan discussed w/ family, PT/OT, certified social workers in health care * medication reviewed as below * symptomatic treatment * she is medically stable * discussed with family bedside * once insurance approve, she can be discharged to rehab. Review of Systems - Review of Systems ENT: negative: Ear Pain, Ear Discharge, Nose Pain, Nose Discharge, Nose Congestion, Mouth Pain, Mouth Swelling, Throat Pain, Throat Swelling, Other Respiratory: negative: Cough, Dry, Shortness of Breath, Hemoptysis, SOB with Excertion, Pleuritic Pain, Sputum, Wheezing Cardiovascular: negative: chest pain, palpitations, orthopnea, paroxysmal nocturnal dyspnea, edema, light headedness, other Gastrointestinal: negative: Nausea, Vomiting, Abdominal Pain, Diarrhea, Constipation, Melena, Hematochezia, Other Genitourinary: negative: Dysuria, Frequency, Incontinence, Hematuria, Retention , Other Musculoskeletal: negative: Neck Pain, Shoulder Pain, Arm Pain, Back Pain, Hand Pain, Leg Pain, Foot Pain, Other Skin: negative: Rash, Lesions, Chicho, Bruising, Other - Medications/Allergies Allergies/Adverse Reactions: Allergies Allergy/AdvReac Type Severity Reaction Status Date / Time No Known Allergies Allergy Verified 08/22/18 12:52 Medications: Current Medications Acetaminophen (Tylenol) 650 mg PO Q4H PRN PRN Reason: AMEZQUITA/ T > 101F; Mild Pain (1-3) Last Admin: 09/04/18 05:50 Dose: 650 mg Hydrocodone Bitart/Acetaminophen ([place] 10/325) 1 tab PO Q4H PRN PRN Reason: Pain (1-3) Hydrocodone Bitart/Acetaminophen ([place] 10/325) 2 tab PO Q4H PRN PRN Reason: PAIN (4-6) Last Admin: 09/03/18 19:12 Dose: 2 tab Artificial Tears (Tears Naturale) 2 drop EA EYE PRN PRN PRN Reason: Dry Eyes Aspirin (Ecotrin) 81 mg PO BID [facility] Last Admin: 09/06/18 08:05 Dose: 81 mg Benzonatate (Tessalon) 100 mg PO QIDPRN PRN PRN Reason: Cough Calcium Carbonate ([facility]trate) [facility] Last Admin: 09/06/18 08:05 Dose: 600 mg Celecoxib (Celebrex) [facility] Last Admin: 09/06/18 08:04 Dose: 200 mg Cholecalciferol (Vitamin D3) 1,000 units PO [facility] Last Admin: 09/05/18 09:18 Dose: 1,000 units Diphenhydramine HCl (Benadryl) 25 mg PO Q6H PRN PRN Reason: Itching Fentanyl (Sublimaze) 50 mcg IV Q1H PRN PRN Reason: BT PAIN Last Admin: 09/03/18 10:35 Dose: 50 mcg Ferrous Gluconate (Fergon) 324 mg PO BID [facility] Last Admin: 09/06/18 08:05 Dose: 324 mg Folic Acid (Folvite) 1 mg PO DAILY [facility] Last Admin: 09/06/18 08:06 Dose: 1 mg Guaifenesin (Robitussin Sf) 200 mg PO Q4H PRN PRN Reason: Cough Hydralazine HCl (Apresoline) 10 mg SLOW IVP Q4H PRN PRN Reason: SBP Greater Than 170 Sodium Chloride (Normal Saline 0.9%) 1,000 mls @ 100 mls/hr IV .Q10H [facility] Last Admin: 09/06/18 05:00 Dose: Not Given Ropivacaine (Ropivacaine 0.2% 550 Ml) 550 mls @ 0 mls/hr NERVE BLCK INF [facility] Last Admin: 09/05/18 14:41 Dose: 550 mls Iron/Minerals/Multivitamins (Theragran M) 1 tab PO DAILY [facility] Last Admin: 09/06/18 08:06 Dose: 1 tab Loperamide HCl (Imodium) 2 mg PO PRN PRN PRN Reason: Diarrhea/Loose Stools Methotrexate Sodium (Methotrexate Sodium) 10 [facility] Last Admin: 09/04/18 18:23 Dose: Not Given Mineral Oil/White Petrolatum (Eucerin Cream) 0 gm TOP BIDPRN PRN PRN Reason: Dry Skin Ondansetron HCl (Zofran) 4 mg IVP Q6H PRN PRN Reason: Nausea/Vomiting Last Admin: 09/04/18 08:45 Dose: 4 mg Ondansetron HCl (Zofran Odt) 4 mg SL Q4H PRN PRN Reason: Nausea Promethazine HCl (Phenergan) 12.5 mg IM Q4H PRN PRN Reason: Nausea Rosuvastatin Calcium (Crestor) 5 mg PO [facility] Last Admin: 09/05/18 20:36 Dose: 5 mg Senna/Docusate Sodium (Senokot S) 2 tab PO BID [facility] Last Admin: 09/06/18 08:06 Dose: 2 tab Sodium Chloride (Flush - Normal Saline) 10 ml IVF PRN PRN PRN Reason: Saline Flush Last Admin: 09/04/18 07:53 Dose: 10 ml Sodium Chloride ([place] Nasal [place] 0.65%) 0 ml EA NARE QIDPRN PRN PRN Reason: Nasal Congestion Sotalol HCl (Betapace) 40 mg PO BID [facility] Last Admin: 09/06/18 08:03 Dose: 40 mg Throat Lozenges (Cepastat Lozenges) 1 tera PO Q2H PRN PRN Reason: Sore Throat Tramadol HCl (Ultram) 100 mg PO Q6H PRN PRN Reason: Moderate Pain 4-6 Tramadol HCl (Ultram) 25 mg PO Q4H PRN PRN Reason: Mild Pain (1-3) Last Admin: 09/05/18 14:48 Dose: 25 mg Zolpidem Tartrate (Ambien) 5 mg PO HSPRN PRN PRN Reason: Insomnia
[2018-09-06] MEDS: traMADol HCl 50 MG TAB PO PRN (22:30)
[2018-09-07] MEDS: Sodium Chloride 0.9% 1,000 ML IV SCH ×2 (02:00→11:31)
[2018-09-07 05:56] LABS: Hemoglobin 10.1 g/dL (12.0-16.0); Mean Corpuscular HGB CONC 33.3 g/dL (32.0-36.0); Mean Corpuscular Hemoglobin 33.6 pg (27.0-31.0); Mean Platelet Volume 6.9 fL (7.4-10.4); Platelet Count 267 thou/uL (130-400); RBC Distribution Width 13.5 % (11.5-14.5); White Blood Cell (WBC) Count 6.5 thou/uL (4.8-10.8)
[2018-09-07] MEDS: Sotalol HCl 80 MG TAB PO SCH (07:51)
[2018-09-07] MEDS: Folic Acid 1 MG TAB PO SCH (07:51)
[2018-09-07] MEDS: Calcium Carbonate 600 MG TAB PO SCH (07:51)
[2018-09-07] MEDS: Ferrous Gluconate 324 MG TAB PO SCH (07:51)
[2018-09-07] MEDS: Aspirin 81 mg Enteric Coated Tablet PO SCH (07:52)
[2018-09-07] MEDS: CeleCOXIB 100 MG CAP PO SCH (07:52)
[2018-09-07] MEDS: Multivitamin W/ Minerals 1 TAB PO SCH (07:52)
[2018-09-07] MEDS: Methotrexate Sodium 2.5 MG TAB PO SCH (07:55)
--- NOTE | 2018-09-07 10:33 | PDOC.PN ---
- Subjective Encounter Start Date: 09/07/18 Encounter Start Time: 08:10 Patient seen and examined. No new complaints. No overnight events - Objective Resuscitation Status: Resuscitation Status FULL:Full Resuscitation MAR Reviewed: Yes Vital Signs & Weight: Vital Signs (12 hours) Temp Pulse Resp BP BP Pulse Ox 09/07/18 08:00 94 L 09/07/18 07:51 82 115/69 09/07/18 07:30 98.7 F 81 12 115/69 92 L 09/07/18 04:00 98.4 F 91 18 118/68 95 09/07/18 00:30 98.7 F 76 18 127/78 95 Weight Admit Weight 165 lb Weight 165 lb I&O: 09/06/18 09/07/18 09/08/18 06:59 06:59 06:59 Intake Total 1250 480 Balance 1250 480 Result Diagrams: 09/07/18 04:58 Phys Exam - Physical Examination Constitutional: NAD HEENT: PERRLA, moist MMs, sclera anicteric Neck: no JVD, supple Respiratory: no wheezing, no rales, no rhonchi Cardiovascular: RRR, no significant murmur, no rub Gastrointestinal: soft, non-tender, no distention, positive bowel sounds Musculoskeletal: no edema, pulses present Neurological: non-focal, normal sensation, moves all 4 limbs Psychiatric: normal affect, A&O x 3 Skin: no rash, normal turgor Dx/Plan (1) Status post total right knee replacement Code(s): Z96.651 - PRESENCE OF RIGHT ARTIFICIAL KNEE JOINT Status: Acute (2) Dyslipidemia Code(s): E78.5 - HYPERLIPIDEMIA, UNSPECIFIED Status: Chronic (3) H/O: CVA (cerebrovascular accident) Code(s): Z86.73 - PRSNL HX OF TIA (TIA), AND CEREB INFRC W/O RESID DEFICITS Status: Chronic (4) H/O benign neoplasm of heart Code(s): Z86.79 - PERSONAL HISTORY OF OTHER DISEASES OF THE CIRCULATORY SYSTEM Status: Chronic (5) Rheumatoid arthritis Code(s): M06.9 - RHEUMATOID ARTHRITIS, UNSPECIFIED Status: Chronic (6) Macrocytic anemia Code(s): D53.9 - NUTRITIONAL ANEMIA, UNSPECIFIED Status: Chronic - Plan cont current plan of care, PT/OT * medication reviewed as below * symptomatic treatment * medically stable * pain controlled * will sign off if discharged. Review of Systems - Review of Systems ENT: negative: Ear Pain, Ear Discharge, Nose Pain, Nose Discharge, Nose Congestion, Mouth Pain, Mouth Swelling, Throat Pain, Throat Swelling, Other Respiratory: negative: Cough, Dry, Shortness of Breath, Hemoptysis, SOB with Excertion, Pleuritic Pain, Sputum, Wheezing Cardiovascular: negative: chest pain, palpitations, orthopnea, paroxysmal nocturnal dyspnea, edema, light headedness, other Gastrointestinal: negative: Nausea, Vomiting, Abdominal Pain, Diarrhea, Constipation, Melena, Hematochezia, Other Genitourinary: negative: Dysuria, Frequency, Incontinence, Hematuria, Retention , Other Musculoskeletal: negative: Neck Pain, Shoulder Pain, Arm Pain, Back Pain, Hand Pain, Leg Pain, Foot Pain, Other Skin: negative: Rash, Lesions, Chicho, Bruising, Other - Medications/Allergies Allergies/Adverse Reactions: Allergies Allergy/AdvReac Type Severity Reaction Status Date / Time No Known Allergies Allergy Verified 08/22/18 12:52 Medications: Current Medications Acetaminophen (Tylenol) 650 mg PO Q4H PRN PRN Reason: AMEZQUITA/ T > 101F; Mild Pain (1-3) Last Admin: 09/04/18 05:50 Dose: 650 mg Hydrocodone Bitart/Acetaminophen ([place] 10/325) 1 tab PO Q4H PRN PRN Reason: Pain (1-3) Hydrocodone Bitart/Acetaminophen ([place] 10/325) 2 tab PO Q4H PRN PRN Reason: PAIN (4-6) Last Admin: 09/03/18 19:12 Dose: 2 tab Artificial Tears (Tears Naturale) 2 drop EA EYE PRN PRN PRN Reason: Dry Eyes Aspirin (Ecotrin) 81 mg PO BID [facility] Last Admin: 09/07/18 07:52 Dose: 81 mg Benzonatate (Tessalon) 100 mg PO QIDPRN PRN PRN Reason: Cough Calcium Carbonate (Caltrate) 600 mg PO [facility] Last Admin: 09/07/18 07:51 Dose: 600 mg Celecoxib (Celebrex) 200 mg PO [facility] Last Admin: 09/07/18 07:52 Dose: 200 mg Cholecalciferol (Vitamin D3) 1,000 [facility] Last Admin: 09/07/18 07:55 Dose: 1,000 units Diphenhydramine HCl (Benadryl) 25 mg PO Q6H PRN PRN Reason: Itching Fentanyl (Sublimaze) 50 mcg IV Q1H PRN PRN Reason: BT PAIN Last Admin: 09/03/18 10:35 Dose: 50 mcg Ferrous Gluconate (Fergon) 324 mg PO BID [facility] Last Admin: 09/07/18 07:51 Dose: 324 mg Folic Acid (Folvite) 1 mg PO DAILY [facility] Last Admin: 09/07/18 07:51 Dose: 1 mg Guaifenesin (Robitussin Sf) 200 mg PO Q4H PRN PRN Reason: Cough Hydralazine HCl (Apresoline) 10 mg SLOW IVP Q4H PRN PRN Reason: SBP Greater Than 170 Sodium Chloride (Normal Saline 0.9%) 1,000 mls @ 100 mls/hr IV .Q10H [facility] Last Admin: 09/07/18 02:00 Dose: Not Given Ropivacaine (Ropivacaine 0.2% 550 Ml) 550 mls @ 0 mls/hr NERVE BLCK INF [facility] Last Admin: 09/05/18 14:41 Dose: 550 mls Iron/Minerals/Multivitamins (Theragran M) 1 tab PO DAILY [facility] Last Admin: 09/07/18 07:52 Dose: 1 tab Loperamide HCl (Imodium) 2 mg PO PRN PRN PRN Reason: Diarrhea/Loose Stools Methotrexate Sodium (Methotrexate Sodium) 10 mg PO WeSa [facility] Last Admin: 09/07/18 07:55 Dose: 10 mg Mineral Oil/White Petrolatum (Eucerin Cream) 0 gm TOP BIDPRN PRN PRN Reason: Dry Skin Ondansetron HCl (Zofran) 4 mg IVP Q6H PRN PRN Reason: Nausea/Vomiting Last Admin: 09/04/18 08:45 Dose: 4 mg Ondansetron HCl (Zofran Odt) 4 mg SL Q4H PRN PRN Reason: Nausea Last Admin: 09/06/18 15:20 Dose: 4 mg Promethazine HCl (Phenergan) 12.5 mg IM Q4H PRN PRN Reason: Nausea Rosuvastatin Calcium (Crestor) 5 mg PO [facility] Last Admin: 09/05/18 20:36 Dose: 5 mg Senna/Docusate Sodium (Senokot S) 2 tab PO BID [facility] Last Admin: 09/06/18 21:24 Dose: Not Given Sodium Chloride (Flush - Normal Saline) 10 ml IVF PRN PRN PRN Reason: Saline Flush Last Admin: 09/04/18 07:53 Dose: 10 ml Sodium Chloride ([place] Nasal [place] 0.65%) 0 ml EA NARE QIDPRN PRN PRN Reason: Nasal Congestion Sotalol HCl (Betapace) 40 mg PO BID [facility] Last Admin: 09/07/18 07:51 Dose: 40 mg Throat Lozenges (Cepastat Lozenges) 1 tera PO Q2H PRN PRN Reason: Sore Throat Tramadol HCl (Ultram) 100 mg PO Q6H PRN PRN Reason: Moderate Pain 4-6 Last Admin: 09/07/18 03:17 Dose: 100 mg Tramadol HCl (Ultram) 25 mg PO Q4H PRN PRN Reason: Mild Pain (1-3) Last Admin: 09/06/18 22:30 Dose: 25 mg Zolpidem Tartrate (Ambien) 5 mg PO HSPRN PRN PRN Reason: Insomnia
[2018-09-07] MEDS: Senokot S 8.6-50 MG TAB PO SCH (11:30)
[2018-09-07 12:44] VITALS: BP 91/58; TEMP 97.9
--- NOTE | 2018-09-07 13:56 | DIS ---
DATE OF ADMISSION: 09/03/2018 DATE OF DISCHARGE: 09/07/2018 PRIMARY CARE PHYSICIAN: Wild Trujillo M.D. DISCHARGE DISPOSITION: [facility]. PRIMARY DISCHARGE DIAGNOSIS: Status post right total knee replacement. SECONDARY DISCHARGE DIAGNOSES: 1. Dyslipidemia. 2. History of benign neoplasm of heart. 3. History of cerebrovascular accident. 4. History of microcytic anemia. 5. Rheumatoid arthritis. PRIMARY PROCEDURE/OPERATION: None. RADIOLOGICAL INVESTIGATION: Knee x-ray. SIGNIFICANT LABORATORY DATA: WBC 6.5, hemoglobin 10.1 and platelet 267. DISCHARGE MEDICATIONS: Tessalon 100 mg p.o. p.r.n., calcium 600 mg p.o. daily, celecoxib 200 mg p.o. daily, vitamin D 1000 unit p.o. daily, folic acid 0.8 mg p.o. daily, glucosamine chondroitin sulfate one tablet p.o. b.i.d., methotrexate 10 mg p.o. every 3 days, prednisone 10 mg as directed, Crestor 5 mg p.o. as directed, Betapace 40 mg p.o. b.i.d., aspirin 81 mg p.o. b.i.d., Moira 10 one tablet q.4 hourly p.r.n., tramadol 25 mg q.4 hourly p.r.n. CONTRAINDICATIONS: None. CODE STATUS: FULL CODE. INPATIENT CONSULTANTS: Dr. Saul was primary while in hospital. Sound Team was consulted for medic al comanagement. TEST RESULTS PENDING ON DISCHARGE: None. ALLERGIES: No known drug allergy. DISCHARGE PLAN: Post hospital, patient is discharged to [facility]. Subsequently, sonu newby will follow up with primary care physician and patient has appointment with Dr. Dorys Azar as well. HOSPITAL COURSE: A 73-year-old female who was electively admitted by Dr. Saul for right total knee replacement which was done on 09/03/2018. Postoperatively, Sound Team was consulted for medical com anagement. The patient's all medical problem remains stable. We continued all her home medication w hile in hospital. While in hospital, she had aspirin for DVT prophylaxis. She had nerve block for p ain control and other pain medication was given for pain control. She did very well with [facility] protocol treatment, but patient was requiring more rehabilitation and that is why with help of casework manager, we arranged [facility] because of insurance approval and arrangement for rehabili tation, it took little bit longer than usual while in hospital. The patient is medically stable for discharge today. Today, patient has approval for rehabilitation as well as the insurance approval. The patient is seen and examined at bedside today. Please see my progress note from today for furthe r details.
== END 2018-09-07 13:53 | DRG 470 ==
LOC: SURG A 09-03 05:21 → SJJU 09-03 10:16
PROVIDERS: ADMIT Orthopaedic Surgery; ATTEND Orthopaedic Surgery
PROC: 0SRC0J9 Replacement of Right Knee Joint with Synthetic Substitute, Cemented, Open Approach (ICD-10-PCS; principal; 2018-09-03)
DX: M17.11 Unilateral primary osteoarthritis, right knee (principal); Z86.73 Personal history of transient ischemic attack (TIA), and cerebral infarction without residual deficits; M06.9 Rheumatoid arthritis, unspecified; Z86.018 Personal history of other benign neoplasm; Z79.899 Other long term (current) drug therapy; Z79.52 Long term (current) use of systemic steroids; Z79.82 Long term (current) use of aspirin; E78.5 Hyperlipidemia, unspecified; D53.9 Nutritional anemia, unspecified
CPT/HCPCS: 36415; 71046; 81001; 85025; 85027; 85610; 85730; 87081; 93005; 93010; A4306; C1713; C1776; G8978-GP-CK; G8979-GP-CI; G8987-GO-CK; G8988-GO-CJ; J1885; J2001; J2250; J2405; J2704; J2795; J3010; J3370; J7050; J8610; Q0162; S0020

== ENCOUNTER 2018-08-29 13:17 | Outpatient (CLI) | payer MEDICARE ==
[2018-08-22 14:13] LABS: #Eosinphils 0.1 thou/uL (0.0-0.7); #Lymphocytes 0.7 thou/uL (1.20-3.40); #Monocytes 0.3 thou/uL (0.11-0.59); #Neutrophils 6.4 thou/uL (1.40-6.50); %Basophils 0.4 % (0.0-1.0); %Eosinophils 1.1 % (0.0-10.0); %Lymphocytes 9.1 % (21.0-51.0); %Monocytes 3.9 % (0.0-10.0); %Neutrophils 85.7 % (42.0-75.0); Hemoglobin 13.9 g/dL (12.0-16.0); Mean Corpuscular HGB CONC 32.5 g/dL (32.0-36.0); Mean Corpuscular Hemoglobin 33.2 pg (27.0-31.0); Mean Platelet Volume 7.4 fL (7.4-10.4); Platelet Count 267 thou/uL (130-400); RBC Distribution Width 14.4 % (11.5-14.5); White Blood Cell (WBC) Count 7.5 thou/uL (4.8-10.8)
[2018-08-22 14:16] LABS: Bilirubin Negative (Negative); Blood, Urine Negative (Negative); Clarity CLEAR (Clear); Glucose, Urine (Dipstick) Negative (Negative); Leukocyte Negative (Negative); Nitrite Negative (Negative); Protein, Urine (Dipstick) Negative (Neg-Trace); Specific Gravity, Urine 1.007 (1.002-1.036); pH, Urine 6.5 (5.0-9.0)
[2018-08-22 14:18] LABS: PTT 28.7 SEC (22.9-36.1)
[2018-08-22 14:19] LABS: Bacteria/HPF None Seen HPF (None Seen); Hyaline Casts/LPF 0-3 HYALINE CAST LPF (0-3 Hyaline); RBC/HPF 0-3 HPF (0-3); Squamous Epithelial None Seen HPF (0-3); WBC/HPF None Seen HPF (0-3)
--- NOTE | 2018-08-22 15:45 | RAD ---
CHEST PA AND LATERAL: 08/22/18 HISTORY: 73-year-old female with history of preoperative evaluation. FINDINGS: Postop midline sternotomy. Old granuloma calcifications on the left. Minimal increased markings in th e anterior mid lobe regions. No confluent pneumonia, overt edema, or pleural effusion. IMPRESSION: Stable chronic changes. Postop midline sternotomy. Atherosclerosis of the aorta with ectasia. POS: [facility]
--- NOTE | 2018-08-22 17:19 | EKG ---
Test Reason : Blood Pressure : / mmHG Vent. Rate : 074 BPM Atrial Rate : 074 BPM P-R Int : 184 ms QRS Dur : 068 ms QT Int : 426 ms P-R-T Axes : 066 058 095 degrees QTc Int : 472 ms Normal sinus rhythm Low voltage QRS Prolonged QT Abnormal ECG No previous ECGs available Confirmed by DR. Yunior SALGADO ([id number]) on 08/22/2018 5:18:48 PM Referred By: ALEXA Confirmed By:DR. Yunior SALGADO
[2018-08-29 14:25] LABS: Anion Gap 12 mmol/L (10-20); BUN (Urea Nitrogen) 13 mg/dL (9.8-20.1); Calc. Creatinine Clearance 0 mL/min (70-130); Calcium 9.8 mg/dL (7.8-10.44); Carbon Dioxide 27 mmol/L (23-31); Chloride 107 mmol/L (98-107); Estimated GFR-MDRD 77; Glucose 98 mg/dL (83-110); Potassium 4.5 mmol/L (3.5-5.1); Sodium 141 mmol/L (136-145)
== END 2018-08-29 13:18 | disposition home or self-care (01) ==
LOC: LABBT 13:17
PROVIDERS: ATTEND Orthopaedic Surgery
DX: Z01.818 Encounter for other preprocedural examination (principal); M17.11 Unilateral primary osteoarthritis, right knee; I70.0 Atherosclerosis of aorta; I77.819 Aortic ectasia, unspecified site; Z98.890 Other specified postprocedural states
CPT/HCPCS: 71046; 80048; 81001; 85025; 85610; 85730; 86850; 86900; 86901; 87081; 93005; 93010

== ENCOUNTER 2021-08-10 10:44 | Outpatient (CLI) | payer MEDICARE | END 2021-08-10 10:45 | disposition home or self-care (01) | LOC: LABBT 10:44 | PROVIDERS: ATTEND Orthopaedic Surgery | DX: Z01.812 Encounter for preprocedural laboratory examination (principal); M17.12 Unilateral primary osteoarthritis, left knee; Z20.822 Contact with and (suspected) exposure to COVID-19 | CPT/HCPCS: 80048; 81003; 85025; 85610; 86850; 86900; 86901; 87081; U0003; U0005 ==

== ENCOUNTER 2021-08-15 06:37 | Inpatient (IN) | payer MEDICARE ==
[2021-08-10 11:36] LABS: Bilirubin Neg (Negative); Blood, Urine Negative (Negative); Clarity Clear (Clear); Glucose, Urine (Dipstick) Normal (Negative); Ketone, Urine Negative (Negative); Leukocyte Negative (Negative); Nitrite Negative (Negative); Protein, Urine (Dipstick) Negative (Neg-Trace)
[2021-08-10 12:48] LABS: #Basophils 0.1 10x3/uL (0.0-0.2); #Eosinphils 0.7 10x3/uL (0.0-0.5); #Monocytes 0.9 10x3/uL (0.0-1.1); #Neutrophils 3.6 10x3/uL (1.5-8.4); %Basophils 0.8 % (0.0-2.0); %Eosinophils 9.8 % (0.0-6.0); %Lymphocytes 19.2 % (18.0-47.0); %Monocytes 14.2 % (0.0-10.0); %Neutrophils 54.9 % (40.0-75.0); Hemoglobin 12.8 g/dL (12.0-15.5); Mean Corpuscular HGB CONC 32.7 g/dL (32.0-36.0); Mean Corpuscular Hemoglobin 32.2 pg (27.0-33.0); Mean Corpuscular Volume 98.5 fl (81.6-98.3); Mean Platelet Volume 9.9 fl (7.4-10.4); Platelet Count 282 10x3/uL (150-450); RBC Distribution Width 13.3 % (11.5-14.5); Red Blood Cell (RBC) Count 3.98 10x6/uL (3.90-5.03); White Blood Cell (WBC) Count 6.6 10x3/uL (3.5-10.5)
[2021-08-10 13:22] LABS: Prothrombin Time 10.7 sec (9.5-12.1)
[2021-08-10 13:25] LABS: Anion Gap 15 mmol/L (10-20); BUN (Urea Nitrogen) 16 mg/dL (9.8-20.1); Calc. Creatinine Clearance 0 mL/min (70-130); Calcium 9.1 mg/dL (7.8-10.44); Carbon Dioxide 23 mmol/L (23-31); Chloride 109 mmol/L (98-107); Glucose 100 mg/dL (83-110); Potassium 4.4 mmol/L (3.5-5.1); Sodium 143 mmol/L (136-145)
[2021-08-10 23:48] LABS: SARS-CoV-2 PCR by NAA Not Detected (NotDetected)
[2021-08-12 12:49] VITALS: BMI 29.6
[2021-08-15] MEDS ORDERED: Vancomycin 1 GM/200 ML BAG ONE (08:01)
[2021-08-15] MEDS ORDERED: Sodium Chloride 0.9% 100 ML ONE (08:01)
[2021-08-15] MEDS ORDERED: ceFAZolin 2 GM/DEX 5% 100 ML BAG ONE (08:01)
[2021-08-15] MEDS ORDERED: Tranexamic Acid 1,000 MG/10 ML VIAL ONE (08:01)
[2021-08-15] MEDS ORDERED: Fentanyl 100 MCG/2 ML VIAL ONE ×3 (08:47→11:36)
[2021-08-15] MEDS ORDERED: Midazolam HCl 2 mg/2 ml Vial ONE (08:47)
[2021-08-15] MEDS ORDERED: diphenhydrAMINE 25 MG CAP PO PRN (09:06)
[2021-08-15] MEDS ORDERED: Zolpidem Tartrate 5 MG TAB PO PRN ×2 (09:06→10:15)
[2021-08-15] MEDS ORDERED: HYDROcodone/Acetaminophen 10/325 mg Tablet PO PRN ×3 (09:06→10:15)
[2021-08-15] MEDS ORDERED: Ondansetron PF 4 MG/2 ML Vial IVP PRN ×2 (09:06→10:15)
[2021-08-15] MEDS ORDERED: Promethazine HCl 25 MG/ML VIAL IM PRN ×2 (09:06→10:15)
[2021-08-15] MEDS ORDERED: Fentanyl 100 MCG/2 ML VIAL SLOW IVP PRN ×3 (09:06→10:05)
[2021-08-15] MEDS ORDERED: Benzonatate 100 MG CAP PO PRN (09:09)
[2021-08-15] MEDS ORDERED: PHENYLEPHRINE-NS 100 MCG/ML 10 ML SYRINGE ONE (09:31)
[2021-08-15] MEDS ORDERED: Ondansetron PF 4 MG/2 ML Vial ONE (09:31)
[2021-08-15] MEDS ORDERED: Rocuronium Bromide 10 MG/ML (10ML VIAL) ONE (09:31)
[2021-08-15] MEDS ORDERED: Dexamethasone 20 MG/5 ML VIAL ONE (09:31)
[2021-08-15] MEDS ORDERED: PROPOFOL 200 MG/20 ML VIAL ONE (09:31)
[2021-08-15] MEDS ORDERED: Ropivacaine 2% HCl/PF (20 MG/10 ML VIAL) ONE (09:31)
[2021-08-15] MEDS ORDERED: Bupivacaine HCl 0.5%/Epinephrine 1:200,000/PF 30 ml Vial ONE (09:31)
[2021-08-15] MEDS ORDERED: Ketorolac Tromethamine 30 MG/ML VIAL ONE (09:31)
[2021-08-15] MEDS ORDERED: Ropivacaine HCl/PF 250 ML in Premix Bag 1 BAG NERVE BLCK SCH (10:15)
[2021-08-15] MEDS ORDERED: traMADol HCl 50 MG TAB PO PRN ×2 (10:15)
[2021-08-15] MEDS: ceFAZolin Sodium/D5W 2 GM in Premix Bag 1 BAG IVPB SCH ×2 (16:43→23:09)
[2021-08-15] MEDS: Ketorolac Tromethamine 30 MG/ML VIAL IVP SCH ×3 (16:49→23:08)
[2021-08-15] MEDS: Sodium Chloride 0.9% 1,000 ML IV SCH ×2 (16:49→19:16)
[2021-08-15] MEDS: Rosuvastatin 5 MG TAB PO SCH (20:08)
[2021-08-15] MEDS: Sotalol HCl 80 MG TAB PO SCH (20:08)
[2021-08-15] MEDS: Aspirin 81 mg Enteric Coated Tablet PO SCH (20:08)
[2021-08-15] MEDS: Folic Acid 1 MG TAB PO SCH (20:08)
[2021-08-15] MEDS ORDERED: Aspirin 81 mg Enteric Coated Tablet PO SCH (21:00)
[2021-08-15] MEDS ORDERED: Non-Formulary Item 1 EACH (Iron [Iron] 18 MG Tablet) PO SCH (21:00)
[2021-08-16] MEDS: Sodium Chloride 0.9% 1,000 ML IV SCH ×2 (06:06→18:00)
[2021-08-16] MEDS: Ketorolac Tromethamine 30 MG/ML VIAL IVP SCH ×3 (06:13→18:15)
[2021-08-16 06:44] LABS: Hemoglobin 10.9 g/dL (12.0-16.0); Mean Corpuscular HGB CONC 33.2 g/dL (32.0-36.0); Mean Corpuscular Hemoglobin 33.4 pg (27.0-31.0); Mean Platelet Volume 7.3 fL (7.4-10.4); Platelet Count 208 thou/uL (130-400); RBC Distribution Width 12.8 % (11.5-14.5); Red Blood Cell (RBC) Count 3.26 mill/uL (4.20-5.40); White Blood Cell (WBC) Count 10.8 thou/uL (4.8-10.8)
[2021-08-16] MEDS: Ferrous Gluconate 324 MG TAB PO SCH ×2 (09:10→18:15)
[2021-08-16] MEDS: Aspirin 81 mg Enteric Coated Tablet PO SCH ×2 (09:10→20:48)
[2021-08-16] MEDS: Multivitamin W/ Minerals 1 TAB PO SCH (09:10)
[2021-08-16] MEDS: CeleCOXIB 100 MG CAP PO SCH (09:10)
[2021-08-16] MEDS: Sotalol HCl 80 MG TAB PO SCH ×2 (09:10→20:49)
[2021-08-16] MEDS: Senokot S 8.6-50 MG TAB PO SCH ×2 (09:11→20:48)
[2021-08-16] MEDS: HYDROcodone/Acetaminophen 10/325 mg Tablet PO PRN (09:11)
[2021-08-16] MEDS: Rosuvastatin 5 MG TAB PO SCH (20:48)
[2021-08-16] MEDS: Folic Acid 1 MG TAB PO SCH (20:48)
[2021-08-17] MEDS: Sodium Chloride 0.9% 1,000 ML IV SCH ×2 (00:07→08:45)
[2021-08-17] MEDS: Ketorolac Tromethamine 30 MG/ML VIAL IVP SCH ×2 (00:10→05:11)
[2021-08-17] MEDS: Aspirin 81 mg Enteric Coated Tablet PO SCH ×2 (08:43→20:42)
[2021-08-17] MEDS: Sotalol HCl 80 MG TAB PO SCH ×2 (08:43→21:28)
[2021-08-17] MEDS: CeleCOXIB 100 MG CAP PO SCH (08:44)
[2021-08-17] MEDS: Senokot S 8.6-50 MG TAB PO SCH ×2 (08:44→20:41)
[2021-08-17] MEDS: Ferrous Gluconate 324 MG TAB PO SCH ×2 (08:45→18:01)
[2021-08-17] MEDS: Multivitamin W/ Minerals 1 TAB PO SCH (08:45)
[2021-08-17] MEDS: Methotrexate Sodium 2.5 MG TAB PO SCH (08:45)
[2021-08-17] MEDS: HYDROcodone/Acetaminophen 10/325 mg Tablet PO PRN ×2 (12:37→18:01)
[2021-08-17] MEDS: [UNRECOGNIZED DRUG - REMARK] PO SCH (16:32)
[2021-08-17] MEDS: Folic Acid 1 MG TAB PO SCH (20:42)
[2021-08-17] MEDS: Rosuvastatin 5 MG TAB PO SCH (20:42)
[2021-08-17] MEDS: Acetaminophen 325 MG TAB PO PRN (20:42)
[2021-08-18 00:02] LABS: Bacteria/HPF 2+ HPF (None Seen); Bilirubin Negative (Negative); Blood, Urine 1+ (Negative); Clarity Turbid (Clear); Glucose, Urine (Dipstick) Normal (Negative); Ketone, Urine Negative (Negative); Leukocyte 25 Leu/uL (Negative); Nitrite Negative (Negative); Protein, Urine (Dipstick) 10 mg/dL (Neg-Trace); Specific Gravity, Urine 1.027 (1.002-1.036); Urobilinogen 3 mg/dL (Less than 2); pH, Urine 5.5 (5.0-9.0)
[2021-08-18 00:16] LABS: Urine Culture Reflex No No
[2021-08-18] MEDS: Multivitamin W/ Minerals 1 TAB PO SCH (08:44)
[2021-08-18] MEDS: Senokot S 8.6-50 MG TAB PO SCH ×2 (08:44→20:46)
[2021-08-18] MEDS: CeleCOXIB 100 MG CAP PO SCH (08:44)
[2021-08-18] MEDS: Sotalol HCl 80 MG TAB PO SCH ×2 (08:45→20:46)
[2021-08-18] MEDS: Aspirin 81 mg Enteric Coated Tablet PO SCH ×2 (08:46→20:45)
[2021-08-18] MEDS: Acetaminophen 325 MG TAB PO PRN ×2 (08:46→18:44)
[2021-08-18] MEDS: Ferrous Gluconate 324 MG TAB PO SCH ×2 (08:46→18:43)
[2021-08-18] MEDS: Sodium Chloride 0.9% 1,000 ML IV SCH ×3 (10:22→19:14)
[2021-08-18] MEDS: [UNRECOGNIZED DRUG - REMARK] PO SCH (15:40)
[2021-08-18] MEDS: Rosuvastatin 5 MG TAB PO SCH (20:45)
[2021-08-18] MEDS: Folic Acid 1 MG TAB PO SCH (20:46)
[2021-08-19] MEDS: Acetaminophen 325 MG TAB PO PRN ×2 (01:32→18:44)
[2021-08-19] MEDS: Sodium Chloride 0.9% 1,000 ML IV SCH ×3 (02:51→20:56)
[2021-08-19] MEDS: CeleCOXIB 100 MG CAP PO SCH (08:55)
[2021-08-19] MEDS: Sotalol HCl 80 MG TAB PO SCH ×2 (08:56→20:55)
[2021-08-19] MEDS: Ferrous Gluconate 324 MG TAB PO SCH ×2 (08:56→18:01)
[2021-08-19] MEDS: Senokot S 8.6-50 MG TAB PO SCH ×2 (08:56→20:55)
[2021-08-19] MEDS: Aspirin 81 mg Enteric Coated Tablet PO SCH ×2 (08:56→20:55)
[2021-08-19] MEDS: Multivitamin W/ Minerals 1 TAB PO SCH (08:56)
[2021-08-19] MEDS: Folic Acid 1 MG TAB PO SCH (20:55)
[2021-08-19] MEDS: Rosuvastatin 5 MG TAB PO SCH (20:55)
[2021-08-20] MEDS: Acetaminophen 325 MG TAB PO PRN (02:08)
[2021-08-20] MEDS: Sotalol HCl 80 MG TAB PO SCH ×2 (08:59→21:46)
[2021-08-20] MEDS: Multivitamin W/ Minerals 1 TAB PO SCH (09:00)
[2021-08-20] MEDS: CeleCOXIB 100 MG CAP PO SCH (09:00)
[2021-08-20] MEDS: Aspirin 81 mg Enteric Coated Tablet PO SCH ×2 (09:00→21:46)
[2021-08-20] MEDS: Ferrous Gluconate 324 MG TAB PO SCH ×2 (09:00→16:52)
[2021-08-20] MEDS: Senokot S 8.6-50 MG TAB PO SCH ×2 (09:00→21:47)
[2021-08-20] MEDS: Methotrexate Sodium 2.5 MG TAB PO SCH (09:02)
[2021-08-20] MEDS: Sodium Chloride 0.9% 1,000 ML IV SCH ×2 (09:15→16:51)
[2021-08-20] MEDS ORDERED: Promethazine HCl 12.5 MG in Sodium Chloride 0.9% 50 ML IVPB PRN (10:10)
[2021-08-20] MEDS ORDERED: Pantoprazole 40 MG VIAL IVP SCH (12:45)
[2021-08-20] MEDS ORDERED: HYDROcodone/Acetaminophen 10/325 mg Tablet PO PRN ×2 (14:01)
[2021-08-20] MEDS ORDERED: Ibuprofen 600 MG TAB PO PRN (14:05)
[2021-08-20] MEDS: Acetaminophen 500 MG TAB PO SCH ×2 (15:03→21:46)
[2021-08-20] MEDS: Folic Acid 1 MG TAB PO SCH (21:47)
[2021-08-20] MEDS: Rosuvastatin 5 MG TAB PO SCH (21:47)
[2021-08-21] MEDS: Acetaminophen 500 MG TAB PO SCH ×4 (02:30→20:44)
[2021-08-21] MEDS: Sodium Chloride 0.9% 1,000 ML IV SCH (04:41)
[2021-08-21 06:05] LABS: #Eosinphils 1.1 thou/uL (0.0-0.7); #Lymphocytes 1.2 thou/uL (1.20-3.40); #Monocytes 0.6 thou/uL (0.11-0.59); #Neutrophils 4.1 thou/uL (1.40-6.50); %Basophils 0.2 % (0.0-1.0); %Eosinophils 15.3 % (0.0-10.0); %Lymphocytes 17.4 % (21.0-51.0); %Monocytes 9.2 % (0.0-10.0); Hemoglobin 10.4 g/dL (12.0-16.0); Mean Corpuscular Hemoglobin 34.3 pg (27.0-31.0); Mean Platelet Volume 6.5 fL (7.4-10.4); Platelet Count 318 thou/uL (130-400); RBC Distribution Width 12.9 % (11.5-14.5); Red Blood Cell (RBC) Count 3.04 mill/uL (4.20-5.40)
[2021-08-21 06:24] LABS: ALT (SGPT) 9 U/L (8-55); AST (SGOT) 17 U/L (5-34); Albumin 3.5 g/dL (3.4-4.8); Alkaline Phosphatase 61 U/L (40-110); Anion Gap 13 mmol/L (10-20); BUN (Urea Nitrogen) 13 mg/dL (9.8-20.1); Bilirubin, Total 1.2 mg/dL (0.2-1.2); Calc. Creatinine Clearance 83 mL/min (70-130); Calcium 9.1 mg/dL (7.8-10.44); Carbon Dioxide 27 mmol/L (23-31); Chloride 105 mmol/L (98-107); Globulin 2.3 g/dL (2.4-3.5); Glucose 102 mg/dL (83-110); Potassium 4.4 mmol/L (3.5-5.1); Protein, Total 5.8 g/dL (5.8-8.1); Sodium 141 mmol/L (136-145)
[2021-08-21] MEDS ORDERED: Electrolyte Replacement Protocol 1 EACH FS SCH (08:30)
[2021-08-21] MEDS ORDERED: Polyethylene Glycol 3350 17 GM Packet PO SCH (08:30)
[2021-08-21 08:49] LABS: Magnesium 2.2 mg/dL (1.6-2.6)
[2021-08-21] MEDS: Ferrous Gluconate 324 MG TAB PO SCH ×2 (09:06→19:07)
[2021-08-21] MEDS: CeleCOXIB 100 MG CAP PO SCH (09:06)
[2021-08-21] MEDS: Senokot S 8.6-50 MG TAB PO SCH ×2 (09:07→20:44)
[2021-08-21] MEDS: Sotalol HCl 80 MG TAB PO SCH ×2 (09:07→20:45)
[2021-08-21] MEDS: Multivitamin W/ Minerals 1 TAB PO SCH (09:07)
[2021-08-21] MEDS: Aspirin 81 mg Enteric Coated Tablet PO SCH ×2 (09:08→20:45)
[2021-08-21] MEDS: Polyethylene Glycol 3350 17 GM Packet PO SCH (11:00)
[2021-08-21] MEDS: Folic Acid 1 MG TAB PO SCH (20:45)
[2021-08-21] MEDS: Rosuvastatin 5 MG TAB PO SCH (20:45)
[2021-08-21] MEDS ORDERED: Bisacodyl 10 MG SUPP PR SCH (21:00)
[2021-08-22] MEDS: Acetaminophen 500 MG TAB PO SCH ×3 (01:50→15:07)
[2021-08-22] MEDS: Ferrous Gluconate 324 MG TAB PO SCH (08:53)
[2021-08-22] MEDS: Senokot S 8.6-50 MG TAB PO SCH (08:53)
[2021-08-22] MEDS: Multivitamin W/ Minerals 1 TAB PO SCH (08:53)
[2021-08-22] MEDS: CeleCOXIB 100 MG CAP PO SCH (08:53)
[2021-08-22] MEDS: Sotalol HCl 80 MG TAB PO SCH (08:54)
[2021-08-22] MEDS ORDERED: Milk Of Magnesia 30 ML UDCUP PO PRN (08:55)
[2021-08-22] MEDS: Polyethylene Glycol 3350 17 GM Packet PO SCH (08:58)
[2021-08-22] MEDS: Aspirin 81 mg Enteric Coated Tablet PO SCH (08:59)
[2021-08-22] MEDS ORDERED: Bisacodyl 10 MG SUPP PR SCH (09:00)
[2021-08-22] MEDS ORDERED: Calcium Carbonate 600 MG TAB PO SCH (09:00)
[2021-08-22 11:55] VITALS: BP 138/85; TEMP 98
== END 2021-08-22 15:10 | disposition home health service (06) | DRG 470 ==
LOC: SDC 06:37 → SJJU 13:12
PROVIDERS: ADMIT Orthopaedic Surgery; ATTEND Orthopaedic Surgery
PROC: 0SRD0J9 Replacement of Left Knee Joint with Synthetic Substitute, Cemented, Open Approach (ICD-10-PCS; principal; 2021-08-15)
DX: M17.12 Unilateral primary osteoarthritis, left knee (principal); M06.9 Rheumatoid arthritis, unspecified; E78.5 Hyperlipidemia, unspecified; R11.2 Nausea with vomiting, unspecified; T41.45XA Adverse effect of unspecified anesthetic, initial encounter; I49.9 Cardiac arrhythmia, unspecified; Z96.651 Presence of right artificial knee joint; K59.00 Constipation, unspecified; Z20.822 Contact with and (suspected) exposure to COVID-19; Z91.018 Allergy to other foods; Z79.899 Other long term (current) drug therapy; Z86.73 Personal history of transient ischemic attack (TIA), and cerebral infarction without residual deficits; Z90.49 Acquired absence of other specified parts of digestive tract
CPT/HCPCS: 36415; 74019; 80048; 80053; 81001; 81003; 83735; 85025; 85027; 85610; 86850; 86900; 86901; 87081; C1713; C9113; J1100; J1885; J2250; J2405; J2550; J2704; J2795; J3010; J3370; J3490; J8610; U0003; U0005